=== PATIENT | female | born 1990 | race Caucasian/White ===

== ENCOUNTER 2019-11-21 09:41 | Outpatient (CLI) | payer OTHER ==
--- NOTE | 2019-11-21 11:59 | RAD ---
THREE VIEWS OF THE RIGHT FOOT: DATE: 11/21/2019. COMPARISON: None. HISTORY: Foot pain following a fall 1 week ago. FINDINGS: There is no displaced fracture or evidence of dislocation. No radiopaque foreign body or subcutaneou s gas is noted. There is enthesophyte formation at the origin of the plantar aponeurosis and insertion of the Merrill s tendon. IMPRESSION: No displaced fracture or dislocation. If symptoms persist, MRI may be beneficial. POS: [facility]
== END 2019-11-21 09:42 | disposition home or self-care (01) ==
LOC: SCSRAD 09:41
PROVIDERS: ATTEND Nurse Practitioner Family
DX: M79.671 Pain in right foot (principal)